=== PATIENT | male | born 1935 | race Caucasian/White ===

== ENCOUNTER → 2020-09-09 | Outpatient (CLI) | payer MEDICARE ==
[~2020-09-09] MED LIST: REGADENOSON 0.4 MG/5 ML SYRINGE ONE
== END | disposition home or self-care (01) ==
LOC: CFH 06:52
PROVIDERS: ATTEND Internal Medicine Cardiovascular Disease
DX: Z01.818 Encounter for other preprocedural examination (principal); R94.31 Abnormal electrocardiogram [ECG] [EKG]
CPT/HCPCS: 78452; 93017; A9502; J2785

== ENCOUNTER → 2020-09-22 | Outpatient (CLI) | payer MEDICARE | END | disposition home or self-care (01) | LOC: CVU 06:23 | PROVIDERS: ATTEND Internal Medicine Cardiovascular Disease | DX: Z01.810 Encounter for preprocedural cardiovascular examination (principal); I08.8 Other rheumatic multiple valve diseases; R94.31 Abnormal electrocardiogram [ECG] [EKG] | CPT/HCPCS: 93306 ==

== ENCOUNTER → 2020-09-30 | Outpatient (CLI) | payer MEDICARE ==
[~2020-09-30] MED LIST changes: +ASPI81TA45 PO; +MULT-658 PO; -REGADENOSON 0.4 MG/5 ML SYRINGE ONE
== END | disposition home or self-care (01) ==
LOC: STAR 10:07
PROVIDERS: ATTEND Neurological Surgery
DX: Z01.812 Encounter for preprocedural laboratory examination (principal); Z20.828 Contact with and (suspected) exposure to other viral communicable diseases; M48.02 Spinal stenosis, cervical region
CPT/HCPCS: 87635; 93005

== ENCOUNTER 2020-10-04 06:54 | Inpatient (IN) | payer MEDICARE ==
[~2020-10-04] VITALS: Ht 177.8 cm; Wt 78.3 kg
[2020-10-04] MEDS ORDERED: CHLORHEXIDINE 15 ML UDC MM ONE (08:00)
[2020-10-04 08:05] VITALS: BP 121/70
[2020-10-04] MEDS ORDERED: CHLORHEXIDINE 15 ML UDC ONE (08:12)
[2020-10-04] MEDS ORDERED: LACTATED RINGERS 1,000 ML IV SCH (08:30)
[2020-10-04] MEDS ORDERED: DONE5TAB7 PO (08:39)
[2020-10-04] MEDS ORDERED: METO-282 PO (08:39)
[2020-10-04] MEDS ORDERED: TAMS-11 PO (08:39)
[2020-10-04] MEDS ORDERED: [UNRECOGNIZED DRUG - OTHER] PO (08:39)
[2020-10-04] MEDS ORDERED: GLUC1CAP48 PO (08:40)
[2020-10-04] MEDS ORDERED: CHOL10003 PO (08:40)
[2020-10-04] MEDS ORDERED: FENTANYL PF 250 MCG/5ML ONE (09:22)
[2020-10-04] MEDS ORDERED: ROCURONIUM 10MG/ML,5ML ONE (09:25)
[2020-10-04] MEDS ORDERED: NEOSTIGMINE 1 MG/ML, 10ML ONE (09:25)
[2020-10-04] MEDS ORDERED: PROPOFOL 100 ML ONE (09:25)
[2020-10-04] MEDS ORDERED: GLYCOPYRROLATE 0.2MG/1ML, 5ML ONE (09:25)
[2020-10-04] MEDS ORDERED: PROPOFOL 10 MG/ML, 20ML ONE (09:25)
[2020-10-04] MEDS ORDERED: CEFAZOLIN 1,000 MG ONE (09:25)
[2020-10-04] MEDS ORDERED: BACITRACIN 50,000 UNIT ONE (10:08)
[2020-10-04] MEDS ORDERED: EPINEPHRINE 1 MG/ML, 1ML ONE (10:08)
[2020-10-04] MEDS ORDERED: BUPIVACAINE/PF 0.5% ONE (10:08)
[2020-10-04] MEDS ORDERED: morphine SULFATE 10 MG/ML, 1ML IVPush PRN (11:00)
[2020-10-04] MEDS ORDERED: MEPERIDINE/PF 25MG/0.5ML IVPush PRN (11:00)
[2020-10-04] MEDS ORDERED: hydrALAzine 20 MG/ML, 1ML IV PRN (11:00)
[2020-10-04] MEDS ORDERED: ONDANSETRON 2MG/ML, 2ML IVPush PRN (11:00)
[2020-10-04] MEDS ORDERED: LABETALOL 5MG/ML, 20ML IV PRN ×2 (11:00→17:00)
[2020-10-04] MEDS ORDERED: HYDROmorphone 1 MG/ML, 1ML INJ IVPush PRN (11:00)
[2020-10-04] MEDS ORDERED: OXYcodone 5 MG/5 ML ORAL.SOL UDC PO PRN (11:00)
[2020-10-04] MEDS ORDERED: ACETAMINOPHEN 325 MG TABLET PO PRN (11:00)
[2020-10-04] MEDS ORDERED: FENTANYL PF 100 MCG/2ML IV PRN (11:00)
[2020-10-04] MEDS ORDERED: BUPIVACAINE/PF 0.5% INFIL ONE (13:15)
[2020-10-04] MEDS ORDERED: HYDROmorphone 2 MG/ML, 1ML IVPush PRN (17:00)
[2020-10-04] MEDS ORDERED: DIPHENHYDRAMINE 50 MG/ML, 1ML IVPush PRN (17:00)
[2020-10-04] MEDS ORDERED: ONDANSETRON 2MG/ML, 2ML IV PRN (17:00)
[2020-10-04] MEDS ORDERED: PROMETHAZINE 25 MG/ML, 1ML IM PRN (17:00)
[2020-10-04] MEDS ORDERED: TIZANIDINE 2MG TABLET PO PRN (17:00)
[2020-10-04] MEDS ORDERED: OXYcodone IR 5MG TABLET PO PRN (17:00)
[2020-10-04] MEDS ORDERED: HYDROcodone/APAP 5/325 TABLET PO PRN (17:00)
[2020-10-04] MEDS ORDERED: DIPHENHYDRAMINE 50 MG/ML, 1ML IM PRN (17:00)
[2020-10-04] MEDS ORDERED: MAGNESIUM HYDROXIDE 8%, 30ML UDC PO PRN (17:00)
[2020-10-04] MEDS ORDERED: DIPHENHYDRAMINE 25 MG CAPSULE PO PRN (17:00)
[2020-10-04] MEDS ORDERED: BISACODYL 10 MG SUPP PR PRN (17:00)
[2020-10-04] MEDS: CEFAZOLIN PMX 1GM/50ML 50 ML IVPB SCH (20:13)
[2020-10-04] MEDS: NS + 20MEQ KCL 1,000 ML IV SCH (20:13)
[2020-10-04 20:26] VITALS: BP 130/65
[2020-10-04] MEDS ORDERED: METOPROLOL SUCCINATE 25 MG TAB.ER.24H PO SCH (21:00)
[2020-10-04] MEDS ORDERED: DONEPEZIL 5 MG TABLET PO SCH (21:00)
[2020-10-05 00:41] VITALS: BP 129/79
[2020-10-05 00:53] VITALS: BP 129/79
[2020-10-05 04:06] VITALS: BP 115/70
[2020-10-05] MEDS: CEFAZOLIN PMX 1GM/50ML 50 ML IVPB SCH (04:37)
[2020-10-05 07:46] VITALS: BP 109/58
[2020-10-05] MEDS: NS + 20MEQ KCL 1,000 ML IV SCH (08:00)
[2020-10-05] MEDS ORDERED: TIZA2TAB4 PO (08:44)
[2020-10-05] MEDS ORDERED: HYDR-3237 PO (08:44)
[2020-10-05] MEDS ORDERED: SENNA/DOCUSATE TABLET PO SCH (09:00)
[2020-10-05] MEDS ORDERED: TAMSULOSIN 0.4 MG CAP.ER.24H PO SCH (09:00)
== END 2020-10-05 11:00 | disposition home or self-care (01) | DRG 473 ==
LOC: OR 06:54 → 4NE 15:44 → OR 22:52 → 4NE 22:53 → DCLOUNGE 10-05 10:53
PROVIDERS: ADMIT Neurological Surgery; ATTEND Neurological Surgery
PROC: 0RB30ZZ Excision of Cervical Vertebral Disc, Open Approach (ICD-10-PCS; 2020-10-04)
PROC: 01N50ZZ Release Median Nerve, Open Approach (ICD-10-PCS; principal; 2020-10-04 10:00)
PROC: 0RG20A0 Fusion of 2 or more Cervical Vertebral Joints with Interbody Fusion Device, Anterior Approach, Anterior Column, Open Approach (ICD-10-PCS; 2020-10-04 10:00)
DX: M50.30 Other cervical disc degeneration, unspecified cervical region (principal); G56.02 Carpal tunnel syndrome, left upper limb; N40.0 Benign prostatic hyperplasia without lower urinary tract symptoms
CPT/HCPCS: 72040; 95938; 95941; C1713; G0378; J0171; J0690; J2704; J2710; J3010; J3480; C1776; C1889; J7120